=== PATIENT | female | born 1935 | race Caucasian/White ===

== ENCOUNTER 2023-09-01 07:24 | Inpatient (IN) | payer MEDICARE ==
[2023-09-01] MEDS ORDERED: Senokot S 8.6-50 MG TAB PO PRN (09:28)
[2023-09-01] MEDS ORDERED: Ondansetron ODT 4 MG TAB PO PRN (09:28)
[2023-09-01] MEDS ORDERED: Acetaminophen 325 MG TAB PO PRN ×2 (09:28→15:17)
[2023-09-01] MEDS ORDERED: Rosuvastatin 10 MG TAB PO SCH ×2 (15:15→21:00)
[2023-09-01] MEDS ORDERED: Non-Formulary Item 1 EACH (Lactulose 10 Gm/15ml Oral Sol 10 GM/15 ML Ml) PO PRN (15:15)
[2023-09-01] MEDS ORDERED: Dicyclomine 20 MG TAB PO PRN (15:15)
[2023-09-01] MEDS: Acetaminophen 325 MG TAB PO SCH (18:30)
[2023-09-01] MEDS: HYDROcodone/Acetaminophen 5/325 mg Tablet PO PRN (18:44)
[2023-09-01] MEDS: Calcium Carbonate 500 MG ChewTAB PO PRN (18:45)
[2023-09-01] MEDS: Simethicone Chewable 80 MG TAB PO PRN (20:58)
[2023-09-01] MEDS ORDERED: cefTRIAXone (ROCEPHIN) 2 GM VIAL IVPB SCH (21:00)
[2023-09-01] MEDS ORDERED: Famotidine 20 MG TAB PO SCH (21:00)
[2023-09-01] MEDS: Gabapentin 300 MG CAP PO SCH (21:03)
[2023-09-01] MEDS: tiZANidine HCl 4 MG TAB PO SCH (21:03)
[2023-09-01] MEDS: cefTRIAXone\\ROCEPHIN 2 GM in Sodium Chloride 0.9% 100 ML IVPB SCH (21:05)
[2023-09-02] MEDS: Acetaminophen 500 MG TAB PO SCH (01:03)
[2023-09-02 06:07] LABS: #Eosinphils 0.2 thou/uL (0.0-0.7); #Monocytes 0.5 thou/uL (0.11-0.59); #Neutrophils 3.5 thou/uL (1.40-6.50); %Basophils 0.8 % (0.0-1.0); %Lymphocytes 19.4 % (21.0-51.0); %Monocytes 9.8 % (0.0-10.0); Hematocrit 29.2 % (36.0-47.0); Hemoglobin 9.7 g/dL (12.0-16.0); Mean Corpuscular HGB CONC 33.1 g/dL (32.0-36.0); Mean Corpuscular Hemoglobin 29.1 pg (27.0-31.0); Mean Corpuscular Volume 87.9 fl (78.0-98.0); Mean Platelet Volume 5.3 fL (7.4-10.4); Platelet Count 232 10x3/uL (130-400); RBC Distribution Width 12.7 % (11.5-14.5); Red Blood Cell (RBC) Count 3.32 mill/uL (4.20-5.40); White Blood Cell (WBC) Count 5.2 10x3/uL (4.8-10.8)
[2023-09-02 06:22] LABS: ALT (SGPT) 82 U/L (8-55); AST (SGOT) 37 U/L (5-34); Albumin 2.9 g/dL (3.4-4.8); Alkaline Phosphatase 71 U/L (40-110); Anion Gap 10 mmol/L (10-20); BUN (Urea Nitrogen) 13 mg/dL (9.8-20.1); Bilirubin, Total 0.3 mg/dL (0.2-1.2); Calc. Creatinine Clearance 96 mL/min (70-130); Carbon Dioxide 29 mmol/L (23-31); Chloride 99 mmol/L (98-107); Estimated GFR 85; Globulin 3.4 g/dL (2.4-3.5); Glucose 102 mg/dL (83-110); Potassium 4.5 mmol/L (3.5-5.1); Protein, Total 6.3 g/dL (5.8-8.1); Sodium 133 mmol/L (136-145)
[2023-09-02] MEDS: Diclofenac 25 MG DR.TAB PO SCH (08:40)
[2023-09-02] MEDS: Docusate 100 MG CAP PO SCH (08:41)
[2023-09-02] MEDS: Enoxaparin 40 MG (0.4 mL) SYRINGE SC SCH (08:42)
[2023-09-02] MEDS: Polyethylene Glycol 3350 17 GM Packet PO SCH (08:42)
[2023-09-02] MEDS: HYDROcodone/Acetaminophen 5/325 mg Tablet PO SCH (11:42)
[2023-09-02] MEDS: Rosuvastatin 10 MG TAB PO SCH (20:55)
[2023-09-03] MEDS: Saccharomyces boulardii 250 MG CAP PO SCH (12:39)
[2023-09-04 03:19] VITALS: BMI 34.5
[2023-09-04] MEDS: Saccharomyces boulardii 250 MG CAP PO SCH (08:36)
[2023-09-04] MEDS: Polyethylene Glycol 3350 17 GM Packet PO SCH (21:31)
[2023-09-05] MEDS: Nystatin Cream 15 GM TUBE TOP PRN (18:49)
[2023-09-06] MEDS: HYDROcodone/Acetaminophen 5/325 mg Tablet PO SCH (09:08)
[2023-09-08] MEDS: Ondansetron PF 4 MG/2 ML Vial IVP PRN (18:22)
[2023-09-08] MEDS: Pepto Bismol Chew TAB PO PRN (21:46)
[2023-09-09 05:57] LABS: #Basophils 0.1 thou/uL (0.0-0.2); #Eosinphils 0.1 thou/uL (0.0-0.7); #Lymphocytes 1.3 thou/uL (1.20-3.40); #Monocytes 0.5 thou/uL (0.11-0.59); #Neutrophils 2.4 thou/uL (1.40-6.50); %Basophils 1.2 % (0.0-1.0); %Eosinophils 3.1 % (0.0-10.0); %Lymphocytes 29.6 % (21.0-51.0); %Neutrophils 54.2 % (42.0-75.0); Hematocrit 26.5 % (36.0-47.0); Hemoglobin 8.7 g/dL (12.0-16.0); Mean Corpuscular HGB CONC 32.9 g/dL (32.0-36.0); Mean Corpuscular Hemoglobin 29.1 pg (27.0-31.0); Mean Corpuscular Volume 88.3 fl (78.0-98.0); Mean Platelet Volume 5.8 fL (7.4-10.4); Platelet Count 201 10x3/uL (130-400); RBC Distribution Width 12.6 % (11.5-14.5); Red Blood Cell (RBC) Count 3.01 mill/uL (4.20-5.40); White Blood Cell (WBC) Count 4.4 10x3/uL (4.8-10.8)
[2023-09-09 06:16] LABS: ALT (SGPT) 37 U/L (8-55); AST (SGOT) 24 U/L (5-34); Albumin 2.9 g/dL (3.4-4.8); Alkaline Phosphatase 62 U/L (40-110); Anion Gap 11 mmol/L (10-20); BUN (Urea Nitrogen) 18 mg/dL (9.8-20.1); Bilirubin, Total 0.2 mg/dL (0.2-1.2); Calc. Creatinine Clearance 81 mL/min (70-130); Calcium 8.7 mg/dL (7.8-10.44); Carbon Dioxide 26 mmol/L (23-31); Chloride 104 mmol/L (98-107); Estimated GFR 72; Globulin 2.9 g/dL (2.4-3.5); Glucose 93 mg/dL (83-110); Potassium 4.5 mmol/L (3.5-5.1); Protein, Total 5.8 g/dL (5.8-8.1); Sodium 136 mmol/L (136-145)
[2023-09-09] MEDS ORDERED: Bismuth SubsALICYLATE 30 ML(17.5 mg/mL) Susp PO PRN (13:00)
[2023-09-09 19:41] VITALS: BP 112/56; TEMP 98.6
== END 2023-09-09 20:20 | DRG 560 ==
LOC: NAV ACUTE 14:57
PROVIDERS: ADMIT Student in an Organized Health Care Education/Training Program; ATTEND Student in an Organized Health Care Education/Training Program
DX: Z47.89 Encounter for other orthopedic aftercare (principal); E87.1 Hypo-osmolality and hyponatremia; R53.81 Other malaise; E78.5 Hyperlipidemia, unspecified; R33.9 Retention of urine, unspecified; K59.00 Constipation, unspecified; D64.9 Anemia, unspecified; R10.9 Unspecified abdominal pain; L89.90 Pressure ulcer of unspecified site, unspecified stage; R13.10 Dysphagia, unspecified; Z79.899 Other long term (current) drug therapy
CPT/HCPCS: 36415; 74177; 80053; 85025; 86140; J0696; J1650; J2405; J3490